=== PATIENT | male | born 1980 | race Hispanic/Latino ===

== ENCOUNTER 2019-02-19 11:10 | Inpatient (IN) | payer OTHER, SELFPAY ==
[2019-02-15 08:53] VITALS: BMI 39.1
[2019-02-19] VITALS (16 sets, daily range): BP systolic 87–131; BP diastolic 51–84; PULSE 58–96; RESP 8–20; TEMP 36–36.9; O2SAT 91–97; BMI 38.5
--- NOTE | 2019-02-19 | DI.RAD.S_ITS ---
PROCEDURE: XR LUMBAR SPINE 2-3V INDICATIONS: TLIF LUMBAR TECHNIQUE: 2 intraoperative fluoroscopic views of the lumbar spine were acquired. COMPARISON: [facility], , -SPINE 2-3 VIEWS, 12/13/2016, 14:41. FINDINGS: There is posterior fusion hardware and a disc spacer present at the L4-5 level. Normal alignment is maintained. IMPRESSION: Intraoperative fluoroscopy for lumbar fusion. Dictated by: Maria Eugenia Mejia M.D. on 02/19/2019 at 16:46 Approved by: Maria Eugenia Mejia M.D. on 02/19/2019 at 16:48
[2019-02-19] MEDS: LACTATED RINGERS 1,000 ML 42 ML IV ×2 (11:54→14:47)
--- NOTE | 2019-02-19 12:19 | PM.PREOP ---
Pre-operative Note Interval Note History & Physical reviewed/Exam performed by Physician: Yes Changes to H&P: No H&P completed within 30 days and has changed as indicated here:: Sanding Line Operator service present for exam and consent form
--- NOTE | 2019-02-19 12:38 | P.OP_ITS ---
Operative Date/Time/Diagnoses Date of procedure: 02/19/19 Time of procedure: 16:29 Pre-op diagnosis: Recurrent lumbar disc herniation with radiculopathy Post-op diagnosis: same Procedure & Clinicians Procedure: L5-6 revision laminotomy with diskectomy on the right Use of microscope L5-6 TLIF (post/post interbody fusion) with cage L5 and L6 screws Iliac crest bone graft aspirate Placement of an epidural catheter Same procedure as scheduled: Yes Indications: [age] year old male with intractable pain from recurrent disc herniation. They had failed conservative management and requested operative intervention. Risks and benefits of surgery were discussed and appropriate consents were obtained. Surgeon: Brien Villafuerte Ironworker Wire Fence Erector: Anna Monzon Anesthesia Type: General Operative Notes Findings: None Closure Type: primary Specimen(s): none sent Prosthetic devices, grafts, tissues, transplants, or devices: NuVasive MAS Reline screws Globus Rise cage Applied: catheter Estimated Blood Loss (mL): 150 Blood products transfused: none Procedure in detail: The patient was brought to the operating room and intubated on the table. A time-out was performed. They were then rolled over to the well- padded Hugo table in the prone position. Preoperative antibiotics were given. The back was prepped and draped in the standard sterile fashion. Using fluoroscopy, a 4 cm longitudinal incision was made to the well-marked right of the midline, excising his previous scar. We used Bovie to come down to and split the lumbodorsal fascia. Using fluoroscopy and monitoring, we then per cutaneously placed Jamshidi needles down the pedicles of L5 and L6 on the right side. He has transitional anatomy and this was the level of his previous laminotomy and diskectomy. These were changed out to guidewires and then we tapped and then placed the NuVasive MAS Reline screw shanks. We then opened up the retractors and used Bovie to clear up the posterolateral gutter as well as medially to the level of his previous laminotomy and cleared off some of the scar tissue. A bur was used to decorticate the transverse processes. We brought in the microscope. Using a combination of bur and Kerrison rongeurs, a revision laminotomy was performed from the right side. We had to carefully clear through the scar tissue until were able to free up the dura from the scar tissue as well as where it was adhered to the disc below. This was separate and distinct from the TLIF approach as we were performing a revision decompression level which required much more time and complexity to work around the scar tissue and free the dura. We then began the TLIF prep. A complete facetectomy was performed on this side at L5-6. We carefully cleaned up the remainder of the foramen until we could easily retract the exiting root as well as clearing medially below the dura and expose the disc space and freeing it up from the scar around the dura. The disc was prepped with bipolar and then an annulotomy was performed. We performed a diskectomy using a combination of paddles, michael, pituitaries, and curettes. We distracted the disc using a paddle and locked the retractor in an open position. We then filled the disc space with Osteocel bone graft. We then placed the globus Rise cage under fluoroscopy and then filled this in with more bone graft. The distraction on the retractor was released to compress down. This completed the posterior interbody fusion portion of the TLIF at L5-6. We then placed the screw heads, hillary, and locked down the set screws. The wound was copiously irrigated. A small stab incision was made over the PSIS. We used a Jamshidi needle to aspirate several mL of bone marrow from the pelvis. This was mixed with the remaining Osteocel and combined with all of the locally harvested bone graft and placed in the posterolateral gutter for the posterior fusion of the TLIF at L5- 6. An epidural catheter was then placed in the spinal canal by carefully depressing the dura and advancing it 6 cm cephalad under the remaining lamina without resistance. The muscle fascia was closed. The catheter was then injected with a solution containing 4 mL of 0.5% Marcaine, 1 mg Stadol, 4 mg Duramorph, and 100 mcg of fentanyl. This was injected without resistance and the catheter was pulled. We then went to the opposite side. Again using fluoroscopy, a 3 cm incision was made and Bovie was used to come down to split the fascia. Using neural monitoring and fluoroscopy, Jamshidi needles were advanced down the pedicles of L5 and L6 on the left side. These were switched over guidewires, tapped, and screws placed. We then placed a hillary and locked the set screws on this side. The wound was irrigated. The fascia was closed. Vancomycin powder was placed in the wounds. The superficial and skin were closed. A sterile dressing was placed. The patient was then rolled over extubated and brought to recovery room without complications. Complications: none Condition: stable Disposition: PACU Plan for aftercare: Inpatient. Up with therapy.
[2019-02-19] MEDS: CEFAZOLIN 2 GM/100 ML FROZ.PIGGY IV ×2 (13:27→21:35)
--- NOTE | 2019-02-19 14:03 | SUR.OPER ---
Prone on spine table, head in foam head support, padded chest and pelvic supports, gel pad at knees, lower legs supported by pillows; nipples, genitalia and toes free of pressure, arms secured on foam padded arm boards at <90 degrees abduction. Tape over blanket at thigh secured to table.
[2019-02-19] MEDS: SODIUM CHLORIDE 0.9% 1,000 ML, GENTAMICIN 80 MG IRR (14:07)
[2019-02-19] MEDS: VANCOMYCIN 1,000 MG VIAL 1000 MG TOP (14:07)
[2019-02-19] MEDS: THROMBIN (RECOMBINANT) 5,000 UNIT VIAL 5000 UNIT TOP (14:07)
[2019-02-19] MEDS: BUPIVACAINE 0.5% (PF) 4 ML, MORPHINE-PF 4 MG, BUTORPHANOL 1 MG, fentaNYL 100 MCG INJ (15:30)
[2019-02-19] MEDS: HYDROMORPHONE 2 MG INJ 0.5 MG IV ×4 (17:07→17:31)
[2019-02-19] MEDS: hydrOXYzine 50 MG/ML INJ 25 MG IM (17:11)
--- NOTE | 2019-02-19 17:57 | SUR.PHASEI ---
Report called to Gisela
--- NOTE | 2019-02-19 18:13 | SUR.PHASEI ---
Pt transferred to the floor with belongings bag and cane. Milk Inspector present. Report to Gisela. VS stable. Drsg checked with Gisela. IV saline locked. Pt moving extremities independently. Family present.
[2019-02-19] MEDS: LACTATED RINGERS 1,000 ML 125 ML IV (21:15)
[2019-02-19] MEDS: CELECOXIB 200 MG CAPSULE 400 MG PO (21:16)
[2019-02-19] MEDS: GABAPENTIN 300 MG CAPSULE PO (21:21)
[2019-02-19] MEDS: ATORVASTATIN 20 MG TABLET PO (21:21)
[2019-02-19] MEDS: DOCUSATE 100 MG CAPSULE PO (21:21)
[2019-02-19] MEDS: LISINOPRIL 10 MG TABLET PO (21:21)
[2019-02-19] MEDS: METFORMIN HCL 500 MG TABLET PO (21:23)
[2019-02-19] MEDS: SENNOSIDES 8.6 MG TABLET 17.2 MG PO (21:23)
[2019-02-19] MEDS: HYDROCODONE/ACET 5/325 TABLET 2 TAB PO (21:34)
--- NOTE | 2019-02-19 22:12 | PC.NURSE ---
Pt came to floor at 1800/ Pt in non-mozambican speaking, interupter present. Has had uneventful evening. Med at 2130 w/ Randall for discomfort. Lungs clear, SpO2 98% RA IVF infusing as per orders into the right hand via pump w/o incidence. Dsg to back CDI. Baxter cath patent clear urine. Stable post op course. Call light w/in reach/ bed alarm on for pt safety. Continue w/plan of care.
[2019-02-20] VITALS (8 sets, daily range): BP systolic 91–134; BP diastolic 49–84; PULSE 68–106; RESP 16–20; TEMP 36.5–36.8; O2SAT 96–99
--- NOTE | 2019-02-20 00:12 | PC.NURSE ---
2300- Pt POD#0 Lami & Tlift, dressing w/ shadow drainage and some old pink drainage as well on back, pt has not ambulated or worked w/ PT at this time. Analytical Lab Analyst present in room as pt is Armenian speaking only; cont SpO2 remains in place; NS running as ordered. BG checks DC'd. BA on for safety, call light within reach. 0500- Pt is hypotensive and dizzy lying in bed. Good urine output noted in kwong catheter; asking for pain medication however needing to consult MD first. 0530- MD Baird called this RN back regarding hypotension. Wanting to wait for PA to round and cont to assess BP until they arrive, will call MD back if BP gets worse.
[2019-02-20] MEDS: CEFAZOLIN 2 GM/100 ML FROZ.PIGGY IV (05:14)
[2019-02-20] MEDS: LACTATED RINGERS 1,000 ML 125 ML IV (05:14)
[2019-02-20 05:32] LABS: Hematocrit 39.1 % (41-53); Hemoglobin 12.8 g/dL (13.5-17.5)
[2019-02-20 05:41] LABS: BUN Creatinine Ratio 18.9 (6-22); Blood Urea Nitrogen 17 mg/dL (9-20); Calcium 9.1 mg/dL (8.4-10.2); Carbon Dioxide 26 mmol/L (22-32); Chloride 103 mmol/L (98-107); Estimated Glomerular Filt Rate > 60.0 mL/min (>60); Glucose 175 mg/dL (70-100); HEMOLYSIS < 15 (0-50); Potassium 4.5 mmol/L (3.4-5.1); Sodium 136 mmol/L (137-145)
--- NOTE | 2019-02-20 08:07 | PM.PNPO.1 ---
Subjective Date Patient Seen: 02/20/19 Time Patient Seen: 08:07 Interval history: Back pain is not too bad right now. Still feeling some pain in the legs, but with the pain medication that he is on, unable to tell how much difference there has been since surgery. Exam Vital Signs (past 8 hours): - 02/20/19 04:00 02/20/19 06:21 02/20/19 07:30 Temperature 98.0 F 97.7 F Pulse Rate 95 H 92 H 88 Respiratory Rate 18 18 Blood Pressure 91/49 L 109/71 104/65 Pulse Oximetry 97 97 Oxygen Delivery Method Room Air Const Orientation: alert and oriented x3 Back/Spine/Pelvis Other: Mild drainage. 5/5 motor both lower extremities. Objective Labs Result Diagrams: 02/20/19 05:16 02/20/19 05:16 Labs: Laboratory Results - last 24 hr 02/20/19 02/20/19 05:16 05:16 Hgb 12.8 L Hct 39.1 L Sodium 136 L Potassium 4.5 Chloride 103 Carbon Dioxide 26 BUN 17 Creatinine 0.90 Estimated GFR > 60.0 BUN/Creatinine Ratio 18.9 Glucose 175 H Calcium 9.1 Assessment & Plan Post-op Postoperative Procedures Operation Date: 02/19/19 12:45 Actual Procedures Side Surgeon p L5-6 Revision discectomy w/Instru fusion & bone graft Brien Villafuerte MD Stable after revision surgery. Mobilize today with physical therapy. Put on low-dose insulin protocol as his glucose was in the 160-170 range. Anticipate discharge in 2 more days probably. Quality VTE Deep Vein Thrombosis/Pulmonary Embolism Present on Admission: No
[2019-02-20] MEDS: HYDROCODONE/ACET 5/325 TABLET 2 TAB PO ×3 (08:46→22:53)
[2019-02-20] MEDS: DOCUSATE 100 MG CAPSULE PO ×2 (08:48→22:54)
[2019-02-20] MEDS: METFORMIN HCL 500 MG TABLET PO ×2 (08:48→22:55)
[2019-02-20] MEDS: CELECOXIB 200 MG CAPSULE PO ×2 (08:48→22:54)
--- NOTE | 2019-02-20 09:50 | PT.IIE ---
Current Diagnoses Other intervertebral disc displacement, lumbar region (02/19/19) Radiculopathy, lumbar region (02/19/19) Sprain of ligaments of lumbar spine, subsequent encounter (02/19/19) Surgery Performed Operation Date: 02/19/19 12:45 Actual Procedures p L5-6 Revision discectomy w/Instru fusion & bone graft - Brien Villafuerte MD Surgical History (Last Updated 02/15/19 @ 08:57 by Lily Marin RN) Hx of arthroscopy of right knee (Acute 10/15/15) Hx of microdiscectomy (Acute 12/13/16) Hx of right knee surgery (Acute 02/07/17) Medical History (Last Updated 02/15/19 @ 09:26 by Lily Marin RN) Constipation (Acute) Diabetes (Acute) HLD (hyperlipidemia) (Acute) HTN (hypertension) (Acute) Numbness and tingling of both legs (Acute) Physical Therapy Inpatient Evaluation/Re-Eval M1 PT/OT-IP Prior Functional Status Start: 02/20/19 12:03 Freq: NEEDED Status: Active Protocol: Document 02/20/19 09:50 AB (Rec: 02/20/19 12:32 AB [id number]) Medical Review Prior Functional Status Medical History Reviewed Yes Communication able to make needs known Mobility and Gait pt stated that he is modified independent with all mobilities and ambulation without AD Social History Household Members spouse Number of Floors (Floors) One Floor Number of Stairs To Enter/Railing? no steps to enter Home Environment Standard Height Toilet Walk in Shower Home Equipment Front Wheel Walker Four Wheel Walker Straight Cane Crutches Employment Status Unemployed Additional Social History Comment pt's spouse will be off work for 1 week to assist pt. pt's spouse works 11-12 hours/day 6x/week. M2 PT-IP Current Condition Start: 02/20/19 12:03 Freq: NEEDED Status: Active Protocol: Document 02/20/19 09:50 AB (Rec: 02/20/19 12:32 AB [id number]) Physical Therapy Current Condition Current Condition Evaluation Date 02/20/19 Treatment Diagnosis s/p L5-6 rev laminotomy/TLIF; difficulty in walking Onset Date 02/19/19 Precautions Lumbar Precautions Log Roll No Twisting Limit Bending Lifting Restriction of 10 lbs Gait Belt above Incisional Area M3 PT-IP Subjective Start: 02/20/19 12:03 Freq: NEEDED Status: Active Protocol: Document 02/20/19 09:50 AB (Rec: 02/20/19 12:32 AB [id number]) Subjective Physical Therapy Visit Type Type Initial Evaluation Visit Start Time 09:50 Visit Stop Time 10:31 Total Visit Minutes 41 Number of DESK SERGEANT Visits 0 Physical Therapy Visit Comments Patient Comments pt agreeable to do PT Therapy Pain Assessment Pain When Pain Assessed At Rest Pain Present Pain Present Pain Reported Location Lower Back Intensity 8 Scale Used Numeric (1 - 10) Pain Management Techniques Re-positioning Timing of Activity with Medications M4 PT-IP Mobility and Gait Start: 02/20/19 12:03 Freq: NEEDED Status: Active Protocol: Document 02/20/19 09:50 AB (Rec: 02/20/19 12:32 AB [id number]) PT-Bed Mobility Assessment Rolling Type of Rolling Log Rolling Level of Assist Minimal Assistance Supine to Sit Supine to Sit Maximum Assistance 1 Person Assistance PT-Transfer Assessment Sit to and From Stand Sit to and from Stand Moderate Assistance 1 Person Assistance Use of Upper Extremities Equipment Transfer Assistive Device Gait Belt Front Wheeled Walker Orthotic/Prosthetic Devices or Brace: No Transfers Transfer Destination Toilet Transfer Technique pt ambulated to the toilet using FWW Transfer Ability Level of Assist Minimal Assistance Gait Assessment Gait Gait Assistance Required: Minimum Assistance Distance (Feet) 15 Able to Maintain Weight Bearing Status Yes During Gait Assistive Devices Assistive Device Gait Belt Front Wheeled Walker Gait Deviations General Gait Pattern Antalgic Decreased Stride Length Decreased Feet Clearance Factors Limiting Gait Function Factors Limiting Gait Function Decreased Activity Tolerance Decreased Sensation Decreased Strength Limited Range of Motion Pain Poor Balance Poor Safety Awareness Comments Gait Comments pt ambulated to the toilet using FWW min A and cues. left pt with OT. PT-Balance Assessment Sitting Balance and Reactions Static Sitting Balance Ability Good Dynamic Sitting Balance Ability Good Standing Balance and Reactions Static Standing Balance Ability Fair Dynamic Standing Balance Ability Fair Device Used FWW M5 PT-IP Objective Assessments Start: 02/20/19 12:03 Freq: NEEDED Status: Active Protocol: Document 02/20/19 09:50 AB (Rec: 02/20/19 12:32 AB [id number]) Orientation Orientation/Cognition Level of Alertness Alert Orientation Name Place Situation Safety Awareness Understands Safety Issues Gross Range of Motion Lower Extremity ROM Assessment Within Functional Limits Strength Lower Extremity Strength Assessment Right Impaired Knee 3+/5 Sensation Assessment Sensation Gross Sensation Right LE Impaired Left LE Impaired Sensation Description Numbness Comments Sensation Comments R lateral thigh and B feet numbness Muscle Tone Muscle Tone WNL Yes M6 PT-IP Treatment Start: 02/20/19 12:03 Freq: NEEDED Status: Active Protocol: Document 02/20/19 09:50 AB (Rec: 02/20/19 12:32 AB [id number]) Physical Therapy Treatment Education Education Provided Precautions Weight Bearing Status Post-Op Packet Safety M7 PT-IP Assessment and Plan Start: 02/20/19 12:03 Freq: NEEDED Status: Active Protocol: Document 02/20/19 09:50 AB (Rec: 02/20/19 12:32 AB [id number]) PT Summary Assessment and Plan Potential Rehabilitation Potential Fair Status of Condition at Evaluation Stable Summary Impairments Pain ROM Strength Balance Coordination Sensation Bed Mobility Transfers Gait Activity Tolerance Assessment Summary pt requiring max A with bed mobility and mod A with mod A for sit to stand. pt plans to go home with spouse to assist him for only a week. d/c plan depending on progress. will conduct caregiver training when appropriate. Goals Bed Mobility Goal Standby Assistance Transfer Goal Standby Assistance Front Wheeled Walker Gait Goal Standby Assistance Front Wheel Walker Gait Distance 150 Days to Meet Goals 5 Frequency of Treatment Frequency Of Treatment Twice a Day Treatment Plan Physical Therapy Treatment Plan Bed Mobility Training Transfer Training Gait Training Therapeutic Exercise Balance Retraining Post Op Education Discharge Planning Hot or Cold Pack Neuromuscular Re-ed Coordination Retraining Manual Therapy Other Recommendations and Next Treatment bed mobility, ambulation, Focus caregiver training Recommendations To Nursing Amount of Assist Needed 1 Person Assist Discharge Recommendations PT Discharge Recommendations Home with Assistance
--- NOTE | 2019-02-20 10:45 | PC.NURSE ---
Pt up with therapy to BR at 1045. He was reporting discomfort around kwong, and requested to have it removed. Fluids stopped at that time also. Tegaderm with 4x4 gauze was completely saturated with blood, blood pooling at base of incision. Replaced with Tegaderm and and 4x4, CDI at this time.
[2019-02-20] MEDS: hydrOXYzine pamoate 25 MG CAPSULE PO ×2 (11:52→16:40)
[2019-02-20] MEDS: HYDROMORPHONE 0.5 MG INJ IV ×3 (11:52→22:58)
[2019-02-20] MEDS: INSULIN ASPART 100 UNIT/ML INSULN PEN SUBCUT ×2 (11:57→17:12)
--- NOTE | 2019-02-20 16:10 | CM.IDA ---
Initial DCP Assessment Note: Pt is a 38 yo male, resident of [facility]. POD#1 from spinal surgery w/Dr Villafuerte. PCP: Not listed Payer: L+I Reviewed chart. Pt mostly indp and active at baseline w/o use of AD. Pt limited by pain. Pt plans to DC back home upon DC w/ to assist for the one week she has off of work. Therapy notes indicate pt's spouse typically works 11-12 hours daily, 6 days per week. Therapy team will complete cg training when appropriate and work w/ pt/family to progress pt towards his goal of going home. Pt requiring Mod- Max assist today. Following closely for coordination of safe DCP. Pt has L+I coverage and will likely return home w/spouse uon DC. ENRRIQUE Miranda Discharge Planning/Care Management CM Discharge Assessment Start: 02/20/19 16:07 Freq: Status: Active Protocol: Document 02/20/19 16:08 WILLIAN (Rec: 02/20/19 16:10 WILLIAN [id number]) Discharge Planning Assessment Assigned Biologist Aide ENRRIQUE Rader DPOA/Assigned Designee Name Rizwana Aragon, spouse Contact Information [phone] Advance Directives? No: Declines further information History Provided By Patient Family Member Medical Record Prior Living Arrangements Apartment/Condo Household Members spouse Type of transporation used prior to Drives own vehicle admit Independent with ADL's Yes Is patient alert and oriented? Yes Comment Works at [employer] Discharge Plan Home Transportation Arrangement Family Review Status In Process
--- NOTE | 2019-02-20 16:42 | PT.IPTN ---
Current Diagnoses Other intervertebral disc displacement, lumbar region (02/19/19) Radiculopathy, lumbar region (02/19/19) Sprain of ligaments of lumbar spine, subsequent encounter (02/19/19) Surgery Performed Operation Date: 02/19/19 12:45 Actual Procedures p L5-6 Revision discectomy w/Instru fusion & bone graft - Brien Villafuerte MD Physical Therapy Treatment Note M2 PT-IP Current Condition Start: 02/20/19 12:03 Freq: NEEDED Status: Active Protocol: Document 02/20/19 09:50 AB (Rec: 02/20/19 12:32 AB [id number]) Physical Therapy Current Condition Current Condition Evaluation Date 02/20/19 Treatment Diagnosis s/p L5-6 rev laminotomy/TLIF; difficulty in walking Onset Date 02/19/19 Precautions Lumbar Precautions Log Roll No Twisting Limit Bending Lifting Restriction of 10 lbs Gait Belt above Incisional Area M3 PT-IP Subjective Start: 02/20/19 12:03 Freq: NEEDED Status: Active Protocol: Document 02/20/19 16:33 GGD (Rec: 02/20/19 16:42 GGD [email or web address]) Subjective Physical Therapy Visit Type Type Treatment Note Visit Start Time 14:00 Visit Stop Time 14:30 Total Visit Minutes 30 Number of HURL SHAKER Visits 1 Physical Therapy Visit Comments Patient Comments Pt willing to work PT. M4 PT-IP Mobility and Gait Start: 02/20/19 12:03 Freq: NEEDED Status: Active Protocol: Document 02/20/19 16:33 GGD (Rec: 02/20/19 16:42 GGD [id number]) PT-Bed Mobility Assessment Rolling Type of Rolling Log Rolling Level of Assist Contact Guard Assistance Supine to Sit Supine to Sit Minimal Assistance 1 Person Assistance Bedrails PT-Transfer Assessment Sit to and From Stand Sit to and from Stand Moderate Assistance 1 Person Assistance Use of Upper Extremities Equipment Transfer Assistive Device Gait Belt Front Wheeled Walker Orthotic/Prosthetic Devices or Brace: No Transfers Transfer Destination Chair Transfer Ability Level of Assist Minimal Assistance Gait Assessment Gait Gait Assistance Required: Contact Guard Assist Distance (Feet) 45 Able to Maintain Weight Bearing Status Yes During Gait Assistive Devices Assistive Device Gait Belt Front Wheeled Walker Gait Deviations General Gait Pattern Antalgic Decreased Stride Length Decreased Feet Clearance Factors Limiting Gait Function Factors Limiting Gait Function Decreased Activity Tolerance Decreased Sensation Decreased Strength Limited Range of Motion Pain Poor Balance Poor Safety Awareness Comments Gait Comments Shoes on for ambulation. Pt stood x 3 min for RN to change dressing. M5 PT-IP Objective Assessments Start: 02/20/19 12:03 Freq: NEEDED Status: Active Protocol: Document 02/20/19 09:50 AB (Rec: 02/20/19 12:32 AB [id number]) Orientation Orientation/Cognition Level of Alertness Alert Orientation Name Place Situation Safety Awareness Understands Safety Issues Gross Range of Motion Lower Extremity ROM Assessment Within Functional Limits Strength Lower Extremity Strength Assessment Right Impaired Knee 3+/5 Sensation Assessment Sensation Gross Sensation Right LE Impaired Left LE Impaired Sensation Description Numbness Comments Sensation Comments R lateral thigh and B feet numbness Muscle Tone Muscle Tone WNL Yes M6 PT-IP Treatment Start: 02/20/19 12:03 Freq: NEEDED Status: Active Protocol: Document 02/20/19 16:33 GGD (Rec: 02/20/19 16:42 GGD [email or web address]) Physical Therapy Treatment Education Education Provided Precautions M7 PT-IP Assessment and Plan Start: 02/20/19 12:03 Freq: NEEDED Status: Active Protocol: Document 02/20/19 16:33 GGD (Rec: 02/20/19 16:42 GGD [id number]) PT Summary Assessment and Plan Summary Assessment Summary Pt improving with mobility. He was able to progress gait distance. He did need assist for sit to stand from bed with cues for hand placement on bed. He fatigued quickly with static standing during dressing change. Frequency of Treatment Frequency Of Treatment Twice a Day Treatment Plan Other Recommendations and Next Treatment bed mobility, ambulation, Focus caregiver training Recommendations To Nursing Amount of Assist Needed 1 Person Assist Discharge Recommendations PT Discharge Recommendations Home with Assistance
--- NOTE | 2019-02-20 17:06 | PC.NURSE ---
1545- Pt C/O 7/10 pain to lower back, medicated with norco 2 tabs. 1620 up with PT ambulated in hallway. Changed lower back drsg which left gauze was saturated, changed to coversite with a 2x2 gauze to aspiration site, currently CDI. 1640- Pt reports pain remains at 7-8/10 medicated with Vistaril 25mg one tab. pt is up to chair for dinner. Fig Caprifier in room as well as family. RONNIE Golden who speaks fluent Hebrew, also is interpreting. VSS. Nigel TSANG.
[2019-02-20] MEDS: diphenhydrAMINE 25 MG TABLET PO (18:04)
--- NOTE | 2019-02-20 18:04 | OT.IP.EVAL ---
Current Diagnoses Other intervertebral disc displacement, lumbar region (02/19/19) Radiculopathy, lumbar region (02/19/19) Sprain of ligaments of lumbar spine, subsequent encounter (02/19/19) Surgery Performed Operation Date: 02/19/19 12:45 Actual Procedures p L5-6 Revision discectomy w/Instru fusion & bone graft - Brien Villafuerte MD Past Medical History (Last Updated 02/15/19 @ 09:26 by Lily Marin RN) Constipation (Acute) Diabetes (Acute) HLD (hyperlipidemia) (Acute) HTN (hypertension) (Acute) Numbness and tingling of both legs (Acute) Surgical History (Last Updated 02/15/19 @ 08:57 by Lily Marin RN) Hx of arthroscopy of right knee (Acute 10/15/15) Hx of microdiscectomy (Acute 12/13/16) Hx of right knee surgery (Acute 02/07/17) Occupational Therapy Inpatient Evaluation/Re-Eval M1 PT/OT-IP Prior Functional Status Start: 02/20/19 17:08 Freq: NEEDED Status: Active Protocol: Document 02/20/19 17:08 [facility] (Rec: 02/20/19 18:04 [facility] [id number]) Medical Review Prior Functional Status Medical History Reviewed Yes Communication able to make needs known Mobility and Gait pt stated that he is modified independent with all mobilities and ambulation without AD Activities of Daily Living and IADL's Pt able to do all ADl's and mainly uses slipper at home. Social History Household Members spouse Living Arrangements Apartment/Condo Number of Floors (Floors) One Floor Number of Stairs To Enter/Railing? no steps to enter Home Environment Standard Height Toilet Walk in Shower Home Equipment Front Wheel Walker Four Wheel Walker Straight Cane Crutches Employment Status Unemployed Additional Social History Comment pt's spouse will be off work for 1 week to assist pt. pt's spouse works 11-12 hours/day 6x/week. M2 OT-IP Current Condition Start: 02/20/19 17:08 Freq: Status: Active Protocol: Document 02/20/19 17:08 [facility] (Rec: 02/20/19 18:04 [facility] [id number]) Occupational Therapy Current Condition Current Condition Evaluation Date 02/20/19 Treatment Diagnosis Recurrent lumbar disc herniation, s/p L5-6 revision disectomy Diagnosis Onset Date 02/19/19 Post Operative Precautions Lumbar Precautions Log Roll No Twisting Limit Bending Lifting Restriction of 10 lbs Gait Belt above Incisional Area Weight Bearing Status Weight Bearing Status Weight Bear as Tolerated M3 OT- IP Subjective and Pain Start: 02/20/19 17:08 Freq: Status: Active Protocol: Document 02/20/19 17:08 [facility] (Rec: 02/20/19 18:04 [facility] [id number]) OT- Subjective Occupational Therapy Visit Type Type Initial Evaluation Visit Start Time 10:05 Visit Stop Time 11:48 Total Visit Minutes 103 Occupational Therapy Visit Comments Patient Comments Pt agreeable to get up. Pt Estonian speaking, however does speak and understand some saudi arabian. OT Pain Assessment Pain When Pain Assessed During Mobility Pain Present Pain Present Pain Reported Location Lower Back Intensity 8 Scale Used Numeric (1 - 10) M4 OT- IP ADL's Start: 02/20/19 17:08 Freq: Status: Active Protocol: Document 02/20/19 17:08 [facility] (Rec: 02/20/19 18:04 [facility] [id number]) OT ADL-Grooming General Evaluation Grooming Ability Standby Assistance Areas Needing Assistance Retrieving/Set-up of Grooming Items Comments OT Grooming Comments Pt able to stand with FWW to do all grooming needs. Cues to bend at hips or bring cup up to his mouth to spit. OT ADL-Oral Care General Eval Oral Care Ability Independent OT ADL-Dressing General Eval Lower Body Dressing Ability Maximum Assistance Areas Needing Assistance Socks Comments OT Dressing Comments Pt issued LB AED and able to practice to douglas/doff socks. Trial of slippers to walk and pt able to show good safety as slipper raisaong able to hold onto his feet well. Did suggest that shoes would be safer. OT ADL-Toileting General Evaluation Toileting Ability Minimal Assistance Areas Needing Assistance Perform Perineal Hygiene Devices Toileting Assistive Devices Grab Bars Comments OT Toileting Comments Pt having difficulty to lean to reach all the back and needing assist for completeness. Pt able to safely push up from the FWW with good safety. OT ADL-Bathing Comments OT Bathing Comments Pt not ready to shower today. M5 OT- IP IADL's Start: 02/20/19 17:08 Freq: Status: Active Protocol: Document 02/20/19 17:08 [facility] (Rec: 02/20/19 18:04 [facility] [id number]) OT-Instrumental Activities of Daily Living Home Safety Awareness Awareness of Need for Assistance at Home Good Awareness Ability to Problem Solve Emergency Able to Problem Solve Situations M6 OT- IP Functional Cognition Start: 02/20/19 17:08 Freq: Status: Active Protocol: Document 02/20/19 17:08 [facility] (Rec: 02/20/19 18:04 [facility] [id number]) Cognitive Factors Limiting Selfcare Function Cognitive Ability Level of Alertness Alert Patient Orientation Name Age Birthday Month Date Year Day of Week Place Situation Attention Span Ability Capable of Focused Attention Capable of Sustained Attention Ability to Follow Commands Able to Follow Multi-Step Commands Memory Description No Deficits Noted Safety Awareness No Deficits Noted Cognitive Comments Cognitive Assessment Comments 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 Pt appears to have no cognitive deficits. OT- Vision and Hearing OT- Hearing Assessment OT- Hearing Assessment WFL OT- Vision Assessment Visual Acuity WFL M7 OT- IP Mobility and Balance Start: 02/20/19 17:08 Freq: Status: Active Protocol: Document 02/20/19 17:08 [facility] (Rec: 02/20/19 18:04 [facility] [id number]) OT- Bed Mobility Assessment Rolling Type of Rolling Roll to Right Level of Assistance Minimal Assistance Supine to Sit Supine to Sit Assist Maximum Assistance 1 Person Assistance OT-Transfer Assessment Sit to and From Stand Sit to and from Stand Moderate Assistance Transfers Transfer Ability Minimal Assistance Technique Transfer Destination Bed Chair Toilet Transfer Technique Stand Step Pivot Devices Transfer Assistive Devices Gait Belt Front Wheeled Walker Comments Mobility Comments MAXA from sidelying to upright mainly due to pain. Pt needing assist to lower down to toilet. OT- Balance Assessment Sitting Balance and Reactions Static Sitting Balance Ability Normal Dynamic Sitting Balance Ability Good Standing Balance and Reactions Static Standing Balance Ability Fair M8 OT- IP Objective Assessments Start: 02/20/19 17:08 Freq: Status: Active Protocol: Document 02/20/19 17:08 [facility] (Rec: 02/20/19 18:04 [facility] [id number]) OT Gross Range of Motion Upper Extremity Range of Motion Assessment Within Functional Limits OT Strength Upper Extremity Strength Assessment Within Functional Limits M9 OT- IP Assessment and Plan Start: 02/20/19 17:08 Freq: Status: Active Protocol: Document 02/20/19 17:08 [facility] (Rec: 02/20/19 18:04 [facility] [id number]) OT Summary Assessment and Plan Potential Rehabilitation Potential Good Analytic Complexity at Evaluation Low Summary OT Impairments Strength Balance Functional Mobility Grooming Dressing Toileting Bathing Toilet Transfers Shower Transfers Progress Towards Goals Slow Progress due to Pain Assessment Summary Pt low complexity and main barrier is pain and bed mobility. Pt doing well and will continue to benefit from OT for LD AED, dressing needs, with incorporation of back precaution for needs and caregiver training. Goals Grooming Goal Independent Dressing Goal Independent Toileting Goal Independent Bathing Goal Standby Assistance Toilet Transfer Goal Independent Shower Transfer Goal Contact Guard Assistance Patient/Caregiver Education Goal Caregiver Independent Assisting Patient Days to Meet Goals 5 Frequency of Treatment Frequency Of Treatment Once a Day Treatment Plan OT Treatment Plan ADL Training Functional Mobility Patient/Family Education Discharge Planning Other Treatment Recommendations and Next shower Treatment Focus Discharge Recommendations OT Discharge Recommendations Home with Assistance Home Equipment Needs wide BSC, shower chair with arms, toilet aid
[2019-02-20] MEDS: ATORVASTATIN 20 MG TABLET PO (22:54)
[2019-02-20] MEDS: LISINOPRIL 10 MG TABLET PO (22:55)
[2019-02-20] MEDS: GABAPENTIN 300 MG CAPSULE PO (22:55)
[2019-02-20] MEDS: SENNOSIDES 8.6 MG TABLET 17.2 MG PO (22:55)
[2019-02-21] VITALS (8 sets, daily range): BP systolic 99–123; BP diastolic 56–82; PULSE 60–95; RESP 16–18; TEMP 36.3–36.8; O2SAT 98–100
[2019-02-21] MEDS: HYDROCODONE/ACET 5/325 TABLET 2 TAB PO ×5 (04:16→21:02)
--- NOTE | 2019-02-21 06:47 | PC.NURSE ---
Assumed care of pt at 2300 on 02/20/19. Pt sleeping during bedside hand-off. Awakens to voice for assessment. Drsg with moderate sang drainage to coversite that was changed on basilia shift. Medicated with Dyer po through the night. Pt reports pain well controlled. CMS+. Using I.S. while awake. Pt aware of spinal precautions of no bending, or twisting. Able to log roll in bed without assist for repositions. Calling appropriately for needs. Able to make needs known. Denied need for phone rock dust sprayer this shift as this check writer salesperson speaks some Czech. Bed alarm on.
--- NOTE | 2019-02-21 07:38 | PM.PNPO.1 ---
Subjective Date Patient Seen: 02/21/19 Time Patient Seen: 07:38 Interval history: He is doing better today. Still pain in the back but the legs are much better. Exam Vital Signs (past 8 hours): - 02/21/19 00:00 02/21/19 04:00 Temperature 97.9 F 97.3 F L Pulse Rate 80 63 Respiratory Rate 18 18 Blood Pressure 120/76 107/77 Pulse Oximetry 98 98 Oxygen Delivery Method Room Air Const Orientation: alert and oriented x3 Back/Spine/Pelvis Other: Mild drainage. 5/5 motor both lower extremities. Objective Labs Result Diagrams: 02/20/19 05:16 02/20/19 05:16 Assessment & Plan Post-op Postoperative Procedures Operation Date: 02/19/19 12:45 Actual Procedures Side Surgeon p L5-6 Revision discectomy w/Instru fusion & bone graft Brien Villafuerte MD he is doing better. Continue to mobilize with physical therapy. Anticipate discharge home tomorrow. Quality VTE Deep Vein Thrombosis/Pulmonary Embolism Present on Admission: No
[2019-02-21] MEDS: DOCUSATE 100 MG CAPSULE PO ×2 (08:40→20:51)
[2019-02-21] MEDS: METFORMIN HCL 500 MG TABLET PO ×2 (08:40→20:52)
[2019-02-21] MEDS: CELECOXIB 200 MG CAPSULE PO ×2 (08:40→20:51)
--- NOTE | 2019-02-21 10:22 | PC.NURSE ---
Addendum entered by Zulay Murillo R.N. 02/21/19 12:52: pt reports that the spanish interpreter is not coming until the afternoon. Pt states he understands Dr, PT, OT, nurse. Aware of phone foreign language interpreter if needed, no questions at this time. Original Note: Day Shift- Pt OOB to brush teeth at sink and to recliner chair at bedside with SBA, pt using FWW. Follows spine precautions during transfers with little prompting. Rates 6/10 pain aching and throbbing to lower back extending to BLE. Pain management plan discussed, prn Wagner given at 0840, pain decreased to 4/10. Lower back surgical dressing is saturated with bloody drainage, no leaking, open area to dressing at mid distal point. Dressing removed, no S/S of infection, incisions approximated with sutures, covered with what looks like xeroform gauze. Surrounding area cleansed with NS, pat dry with gauze. Coversite placed over incision. Pt toelrated well.
--- NOTE | 2019-02-21 10:45 | PT.IPTN ---
Current Diagnoses Other intervertebral disc displacement, lumbar region (02/19/19) Radiculopathy, lumbar region (02/19/19) Sprain of ligaments of lumbar spine, subsequent encounter (02/19/19) Surgery Performed Operation Date: 02/19/19 12:45 Actual Procedures p L5-6 Revision discectomy w/Instru fusion & bone graft - Brien Villafuerte MD Physical Therapy Treatment Note M2 PT-IP Current Condition Start: 02/20/19 12:03 Freq: NEEDED Status: Active Protocol: Document 02/20/19 09:50 AB (Rec: 02/20/19 12:32 AB [id number]) Physical Therapy Current Condition Current Condition Evaluation Date 02/20/19 Treatment Diagnosis s/p L5-6 rev laminotomy/TLIF; difficulty in walking Onset Date 02/19/19 Precautions Lumbar Precautions Log Roll No Twisting Limit Bending Lifting Restriction of 10 lbs Gait Belt above Incisional Area M3 PT-IP Subjective Start: 02/20/19 12:03 Freq: NEEDED Status: Active Protocol: Document 02/21/19 10:45 GGD (Rec: 02/21/19 12:05 GGD [id number]) Subjective Physical Therapy Visit Type Type Treatment Note Visit Start Time 10:20 Visit Stop Time 10:45 Total Visit Minutes [address] INTERPRETER Visits 2 Physical Therapy Visit Comments Patient Comments Pt states he is feeling better . Therapy Pain Assessment Pain When Pain Assessed During Mobility Pain Present Pain Present Pain Reported Location Lower Back Intensity 7 Scale Used Numeric (1 - 10) M4 PT-IP Mobility and Gait Start: 02/20/19 12:03 Freq: NEEDED Status: Active Protocol: Document 02/21/19 10:45 [facility] (Rec: 02/21/19 12:05 GGD [id number]) PT-Bed Mobility Assessment Rolling Type of Rolling Log Rolling Level of Assist Standby Assistance Supine to Sit Supine to Sit Standby Assistance Bedrails Sit to Supine Sit to Supine Standby Assistance Bedrails Scooting Scooting to Edge of Bed Standby Assistance PT-Transfer Assessment Sit to and From Stand Sit to and from Stand Contact Guard Assistance 1 Person Assistance Use of Upper Extremities Equipment Transfer Assistive Device Gait Belt Front Wheeled Walker Orthotic/Prosthetic Devices or Brace: No Transfers Transfer Destination Bed Toilet Transfer Ability Level of Assist Contact Guard Assistance Gait Assessment Gait Gait Assistance Required: Contact Guard Assist Distance (Feet) 175 Able to Maintain Weight Bearing Status Yes During Gait Assistive Devices Assistive Device Gait Belt Front Wheeled Walker Gait Deviations General Gait Pattern Antalgic Decreased Stride Length Decreased Feet Clearance Factors Limiting Gait Function Factors Limiting Gait Function Decreased Activity Tolerance Decreased Sensation Decreased Strength Limited Range of Motion Pain Poor Balance Poor Safety Awareness M5 PT-IP Objective Assessments Start: 02/20/19 12:03 Freq: NEEDED Status: Active Protocol: Document 02/20/19 09:50 AB (Rec: 02/20/19 12:32 AB [id number]) Orientation Orientation/Cognition Level of Alertness Alert Orientation Name Place Situation Safety Awareness Understands Safety Issues Gross Range of Motion Lower Extremity ROM Assessment Within Functional Limits Strength Lower Extremity Strength Assessment Right Impaired Knee 3+/5 Sensation Assessment Sensation Gross Sensation Right LE Impaired Left LE Impaired Sensation Description Numbness Comments Sensation Comments R lateral thigh and B feet numbness Muscle Tone Muscle Tone WNL Yes M6 PT-IP Treatment Start: 02/20/19 12:03 Freq: NEEDED Status: Active Protocol: Document 02/21/19 10:45 GGJose (Rec: 02/21/19 12:05 GGD [id number]) Physical Therapy Treatment Education Education Provided Precautions M7 PT-IP Assessment and Plan Start: 02/20/19 12:03 Freq: NEEDED Status: Active Protocol: Document 02/21/19 10:45 GGD (Rec: 02/21/19 12:05 GGD [id number]) PT Summary Assessment and Plan Summary Assessment Summary Pt improving with mobility. He was able to progress gait distance. He did have heavy use of UE on FWW. Pt was safe with transfers with use of hands on FWW. Frequency of Treatment Frequency Of Treatment Twice a Day Treatment Plan Physical Therapy Treatment Plan Bed Mobility Training Transfer Training Gait Training Therapeutic Exercise Balance Retraining Post Op Education Discharge Planning Hot or Cold Pack Neuromuscular Re-ed Coordination Retraining Manual Therapy Other Recommendations and Next Treatment bed mobility, ambulation, Focus caregiver training Recommendations To Nursing Amount of Assist Needed 1 Person Assist Discharge Recommendations PT Discharge Recommendations Home with Assistance
[2019-02-21] MEDS: INSULIN ASPART 100 UNIT/ML INSULN PEN SUBCUT (12:48)
[2019-02-21] MEDS: hydrOXYzine pamoate 25 MG CAPSULE PO ×2 (14:03→20:54)
--- NOTE | 2019-02-21 14:27 | OT.IP.TRT ---
Current Diagnoses Other intervertebral disc displacement, lumbar region (02/19/19) Radiculopathy, lumbar region (02/19/19) Sprain of ligaments of lumbar spine, subsequent encounter (02/19/19) Surgery Performed Operation Date: 02/19/19 12:45 Actual Procedures p L5-6 Revision discectomy w/Instru fusion & bone graft - Brien Villafuerte MD Occupational Therapy Treatment Note M2 OT-IP Current Condition Start: 02/20/19 17:08 Freq: Status: Active Protocol: Document 02/20/19 17:08 [facility] (Rec: 02/20/19 18:04 [facility] [id number]) Occupational Therapy Current Condition Current Condition Evaluation Date 02/20/19 Treatment Diagnosis Recurrent lumbar disc herniation, s/p L5-6 revision disectomy Diagnosis Onset Date 02/19/19 Post Operative Precautions Lumbar Precautions Log Roll No Twisting Limit Bending Lifting Restriction of 10 lbs Gait Belt above Incisional Area Weight Bearing Status Weight Bearing Status Weight Bear as Tolerated M3 OT- IP Subjective and Pain Start: 02/20/19 17:08 Freq: Status: Active Protocol: Document 02/21/19 14:14 CGR (Rec: 02/21/19 14:27 CGR [id number]) OT- Subjective Occupational Therapy Visit Type Type Treatment Note Visit Start Time 12:08 Visit Stop Time 12:48 Total Visit Minutes 40 Occupational Therapy Visit Comments Patient Comments It feels good to shower. I didn't get a shower after the last surgery. OT Pain Assessment Pain When Pain Assessed During Mobility Pain Present Pain Present Pain Reported Location Lower Back Intensity 6 Scale Used Numeric (1 - 10) Description Acute Management Techniques Timing of Activity with Medications M4 OT- IP ADL's Start: 02/20/19 17:08 Freq: Status: Active Protocol: Document 02/21/19 14:14 [facility] (Rec: 02/21/19 14:27 CGR [id number]) OT WIF-Hiho-Cnobxib General Evaluation Self-Feeding Ability Independent Comments OT Self-Feeding Comments Lunch arrived at end of session. OT ADL-Grooming General Evaluation Grooming Ability Independent Areas Needing Assistance Combing/Brushing Hair Face Washing OT ADL-Oral Care Comments Oral Care Comments Not performed in this session OT ADL-Dressing General Eval Upper Body Dressing Ability Independent Lower Body Dressing Ability Independent Areas Needing Assistance Underpants/Brief Socks Assistive Devices Dressing Assistive Devices Skein Yarn Dyer Helper Sock Aid Comments OT Dressing Comments Without verbal cues for LB dressing OT ADL-Toileting General Evaluation Toileting Ability Independent Comments OT Toileting Comments Seated on toilet OT ADL-Bathing General Evaluation Bathing Ability Independent Areas Needing Assistance Retrieving/Setting Up Items Devices Bathing Equipment Long Handled Sponge or Forming Acid Dumper Held Shower Sprayer Shower Chair with Arms Grab Bars M5 OT- IP IADL's Start: 02/20/19 17:08 Freq: Status: Active Protocol: Document 02/20/19 17:08 [facility] (Rec: 02/20/19 18:04 [facility] [id number]) OT-Instrumental Activities of Daily Living Home Safety Awareness Awareness of Need for Assistance at Home Good Awareness Ability to Problem Solve Emergency Able to Problem Solve Situations M6 OT- IP Functional Cognition Start: 02/20/19 17:08 Freq: Status: Active Protocol: Document 02/20/19 17:08 [facility] (Rec: 02/20/19 18:04 [facility] [id number]) Cognitive Factors Limiting Selfcare Function Cognitive Ability Level of Alertness Alert Patient Orientation Name Age Birthday Month Date Year Day of Week Place Situation Attention Span Ability Capable of Focused Attention Capable of Sustained Attention Ability to Follow Commands Able to Follow Multi-Step Commands Memory Description No Deficits Noted Safety Awareness No Deficits Noted Cognitive Comments Cognitive Assessment Comments 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 Pt appears to have no cognitive deficits. OT- Vision and Hearing OT- Hearing Assessment OT- Hearing Assessment WFL OT- Vision Assessment Visual Acuity WFL M7 OT- IP Mobility and Balance Start: 02/20/19 17:08 Freq: Status: Active Protocol: Document 02/21/19 14:14 [facility] (Rec: 02/21/19 14:27 C[facility] [id number]) OT- Bed Mobility Assessment Rolling Type of Rolling Log Rolling Level of Assistance Independent Supine to Sit Supine to Sit Assist Independent Sit to Supine Sit to Supine Assist Independent Scooting Scooting to Edge of Bed Independent OT-Transfer Assessment Sit to and From Stand Sit to and from Stand Standby Assistance Transfers Transfer Ability Standby Assistance Technique Transfer Destination Bed Shower Stall Toilet Devices Transfer Assistive Devices Bed Rail Front Wheeled Walker OT- Gait Assessment Gait Gait Assistance Required: Standby Assistance Assistive Devices Assistive Device Gait Belt Front Wheeled Walker Comments Gait Ability Comments Around room OT- Balance Assessment Sitting Balance and Reactions Static Sitting Balance Ability Normal Dynamic Sitting Balance Ability Normal Standing Balance and Reactions Static Standing Balance Ability Normal Dynamic Standing Balance Ability Normal M8 OT- IP Objective Assessments Start: 02/20/19 17:08 Freq: Status: Active Protocol: Document 02/20/19 17:08 [facility] (Rec: 02/20/19 18:04 [facility] [id number]) OT Gross Range of Motion Upper Extremity Range of Motion Assessment Within Functional Limits OT Strength Upper Extremity Strength Assessment Within Functional Limits M9 OT- IP Assessment and Plan Start: 02/20/19 17:08 Freq: Status: Active Protocol: Document 02/21/19 14:14 [facility] (Rec: 02/21/19 14:27 [facility] [id number]) OT Summary Assessment and Plan Potential Rehabilitation Potential Excellent Summary OT Impairments Strength Balance Functional Mobility Grooming Dressing Toileting Bathing Toilet Transfers Shower Transfers Progress Towards Goals Progressing Toward Goals Assessment Summary Pt presents with significant increases to mobility and is likley safe for discharge home . present throughout session and very supportive. Goals Grooming Goal Independent Dressing Goal Independent Toileting Goal Independent Bathing Goal Standby Assistance Toilet Transfer Goal Independent Shower Transfer Goal Contact Guard Assistance Patient/Caregiver Education Goal Caregiver Independent Assisting Patient Days to Meet Goals 4 Frequency of Treatment Frequency Of Treatment Once a Day Treatment Plan OT Treatment Plan ADL Training Functional Mobility Patient/Family Education Discharge Planning Discharge Recommendations OT Discharge Recommendations Home with Assistance Home Equipment Needs wide BSC, shower chair with arms, toilet aid, detachable shower head.
--- NOTE | 2019-02-21 16:10 | PT.IPTN ---
Current Diagnoses Other intervertebral disc displacement, lumbar region (02/19/19) Radiculopathy, lumbar region (02/19/19) Sprain of ligaments of lumbar spine, subsequent encounter (02/19/19) Surgery Performed Operation Date: 02/19/19 12:45 Actual Procedures p L5-6 Revision discectomy w/Instru fusion & bone graft - Brien Villafuerte MD Physical Therapy Treatment Note M2 PT-IP Current Condition Start: 02/20/19 12:03 Freq: NEEDED Status: Active Protocol: Document 02/20/19 09:50 AB (Rec: 02/20/19 12:32 AB [id number]) Physical Therapy Current Condition Current Condition Evaluation Date 02/20/19 Treatment Diagnosis s/p L5-6 rev laminotomy/TLIF; difficulty in walking Onset Date 02/19/19 Precautions Lumbar Precautions Log Roll No Twisting Limit Bending Lifting Restriction of 10 lbs Gait Belt above Incisional Area M3 PT-IP Subjective Start: 02/20/19 12:03 Freq: NEEDED Status: Active Protocol: Document 02/21/19 16:10 GGD (Rec: 02/21/19 17:12 GGD [id number]) Subjective Physical Therapy Visit Type Type Treatment Note Visit Start Time 15:35 Visit Stop Time 16:15 Total Visit Minutes 40 Number of ANATOMY AND PHYSIOLOGY INSTRUCTOR Visits 3 Physical Therapy Visit Comments Patient Comments Pt willing to work with [employer]. Therapy Pain Assessment Pain When Pain Assessed At Rest Pain Present Pain Present Pain Reported Location Lower Back Intensity 3 Scale Used Numeric (1 - 10) M4 PT-IP Mobility and Gait Start: 02/20/19 12:03 Freq: NEEDED Status: Active Protocol: Document 02/21/19 16:10 GGD (Rec: 02/21/19 17:12 GGD [id number]) PT-Transfer Assessment Sit to and From Stand Sit to and from Stand Standby Assistance 1 Person Assistance Use of Upper Extremities Equipment Transfer Assistive Device Gait Belt Front Wheeled Walker Orthotic/Prosthetic Devices or Brace: No Transfers Transfer Destination Chair Wheelchair Transfer Ability Level of Assist Contact Guard Assistance Gait Assessment Gait Gait Assistance Required: Contact Guard Assist Distance (Feet) 370 Able to Maintain Weight Bearing Status Yes During Gait Assistive Devices Assistive Device Gait Belt Front Wheeled Walker Gait Deviations General Gait Pattern Antalgic Decreased Stride Length Decreased Feet Clearance Factors Limiting Gait Function Factors Limiting Gait Function Decreased Activity Tolerance Decreased Sensation Decreased Strength Limited Range of Motion Pain Poor Balance Poor Safety Awareness Stair Climbing Assessment Evaluation Level of Assist On Stairs Contact Guard Assistance Devices Stair Climbing Assistive Devices Straight Cane Technique/Endurance Stair Climbing Direction Ascend and Descend Stair Climbing Technique Step to Step Number of Steps Climbed 3 Query Text: Stair Climbing Set # Repetitions (reps) 1 Comments Stair Climbing Comments Pt need min cues for stair mobility. M5 PT-IP Objective Assessments Start: 02/20/19 12:03 Freq: NEEDED Status: Active Protocol: Document 02/20/19 09:50 AB (Rec: 02/20/19 12:32 AB [id number]) Orientation Orientation/Cognition Level of Alertness Alert Orientation Name Place Situation Safety Awareness Understands Safety Issues Gross Range of Motion Lower Extremity ROM Assessment Within Functional Limits Strength Lower Extremity Strength Assessment Right Impaired Knee 3+/5 Sensation Assessment Sensation Gross Sensation Right LE Impaired Left LE Impaired Sensation Description Numbness Comments Sensation Comments R lateral thigh and B feet numbness Muscle Tone Muscle Tone WNL Yes M6 PT-IP Treatment Start: 02/20/19 12:03 Freq: NEEDED Status: Active Protocol: Document 02/21/19 16:10 GGD (Rec: 02/21/19 17:12 GGD [id number]) Physical Therapy Treatment Exercises Exercises Ankle Pumps Education Education Provided Precautions M7 PT-IP Assessment and Plan Start: 02/20/19 12:03 Freq: NEEDED Status: Active Protocol: Document 02/21/19 16:10 GGD (Rec: 02/21/19 17:12 GGD [id number]) PT Summary Assessment and Plan Summary Assessment Summary Pt improving with mobility. He able gait distance. He was safe and stable with stair mobility. He did need standing rest breaks during gait. Pt safe for home D/C when medically stable. Frequency of Treatment Frequency Of Treatment Twice a Day Treatment Plan Physical Therapy Treatment Plan Bed Mobility Training Transfer Training Gait Training Therapeutic Exercise Balance Retraining Post Op Education Discharge Planning Hot or Cold Pack Neuromuscular Re-ed Coordination Retraining Manual Therapy Other Recommendations and Next Treatment bed mobility, ambulation, Focus caregiver training Recommendations To Nursing Amount of Assist Needed 1 Person Assist Discharge Recommendations PT Discharge Recommendations Home with Assistance
[2019-02-21] MEDS: GABAPENTIN 300 MG CAPSULE PO (20:51)
[2019-02-21] MEDS: ATORVASTATIN 20 MG TABLET PO (20:51)
[2019-02-21] MEDS: LISINOPRIL 10 MG TABLET PO (20:52)
[2019-02-21] MEDS: SENNOSIDES 8.6 MG TABLET 17.2 MG PO (20:52)
--- NOTE | 2019-02-21 22:52 | PC.NURSE ---
1630- Pt back from PT hallway ambulation. Bottom coversite drsg saturated with serosang, removed and cleaned with gauze and NS, Xerofoam remains in place, coversite drsg, CDI. CMS+, pp+, 100%RA, LS clear. BT+ denies nausea. BRP to void and BM. CBG- 108 and 173, no coverage x2. Right hand SL. Probable DC tomorrow. Thai speaking, but also understands Sammarinese.
[2019-02-22] MEDS: HYDROCODONE/ACET 5/325 TABLET 2 TAB PO ×3 (01:29→11:44)
--- NOTE | 2019-02-22 03:28 | PC.NURSE ---
Assumed care of pt at 2300 on 02/21/19. Pt sleeping during hand-off report snoring loudly. O2 sats while asleep 94% RA. Awakens to voice and light touch. Sats increase to 97% while awake. Coversite Drsg to back with small amt of sero-sang drainage within margins of drsg. Medicating with norco per nov. Pt reports analgesic effective. CMS+, able to wiggle toes. BP slightly hypotensive. Pt denies dizziness or other symptoms; plan to keep vital sign checks q 4 hrs. Pt aware and following spinal precautions of no bending or twisting; able to log roll in bed with minimal assist. [place] speaking denied the need for administrative assistant office manager service as this quality analyst/technical writer speaks some [place] and pt is able to speak enough [place] Citizen to make needs known. rooming in for the night. Calling appropriately for needs.
[2019-02-22 04:19] VITALS: BP 98/63; PULSE 64; RESP 16; O2SAT 98
[2019-02-22 07:48] VITALS: BP 113/66; PULSE 70; RESP 20; TEMP 36.2; O2SAT 98
[2019-02-22] MEDS: CELECOXIB 200 MG CAPSULE PO (09:07)
[2019-02-22] MEDS: METFORMIN HCL 500 MG TABLET PO (09:07)
[2019-02-22] MEDS: DOCUSATE 100 MG CAPSULE PO (09:07)
--- NOTE | 2019-02-22 10:51 | PC.NURSE ---
Addendum entered by Tiffany Cabrera R.N. 02/22/19 13:11: DC - with acid pump operator present and interpreting, reviewed dc instrucvtions, scripts provided, was given norco x2 tabs 5/325 after earlier phys therapy, belongings gathered, including own fww, chargers and cell phones, tsf to wc w/belongings, to wc and escorted to car by auto phone installer. Addendum entered by Tiffany Cabrera R.N. 02/22/19 11:13: INTEG/MS/PAIN - removed coversite dsg, parallel incisions w/o redness or drainage, some surrounding bruising, sutures intact, replaced coversite. Up with phys therapy, ambul hallway and stair practice, louver door assembler has been at bedside this am. Original Note: AM NOTE - up to chair for breakfast, pain controlled with earlier norco tabs, 5 on scale 0/10, dsg back with shadow drainage, ra 98%, p66, anticipating dc home today.
--- NOTE | 2019-02-22 11:25 | PT.IPTN ---
Current Diagnoses Other intervertebral disc displacement, lumbar region (02/19/19) Radiculopathy, lumbar region (02/19/19) Sprain of ligaments of lumbar spine, subsequent encounter (02/19/19) Surgery Performed Operation Date: 02/19/19 12:45 Actual Procedures p L5-6 Revision discectomy w/Instru fusion & bone graft - Brien Villafuerte MD Physical Therapy Treatment Note M2 PT-IP Current Condition Start: 02/20/19 12:03 Freq: NEEDED Status: Active Protocol: Document 02/20/19 09:50 AB (Rec: 02/20/19 12:32 AB [id number]) Physical Therapy Current Condition Current Condition Evaluation Date 02/20/19 Treatment Diagnosis s/p L5-6 rev laminotomy/TLIF; difficulty in walking Onset Date 02/19/19 Precautions Lumbar Precautions Log Roll No Twisting Limit Bending Lifting Restriction of 10 lbs Gait Belt above Incisional Area M3 PT-IP Subjective Start: 02/20/19 12:03 Freq: NEEDED Status: Active Protocol: Document 02/22/19 11:25 GGD (Rec: 02/22/19 12:04 GGD [id number]) Subjective Physical Therapy Visit Type Type Treatment Note Visit Start Time 10:55 Visit Stop Time 11:25 Total Visit Minutes 30 Number of DIRECTOR TALENT ACQUISITION Visits 4 Physical Therapy Visit Comments Patient Comments Pt state he is ready to D/C home. Therapy Pain Assessment Pain When Pain Assessed At Rest Pain Present Pain Present Pain Reported Location Lower Back Intensity 5 Scale Used Numeric (1 - 10) M4 PT-IP Mobility and Gait Start: 02/20/19 12:03 Freq: NEEDED Status: Active Protocol: Document 02/22/19 11:25 GGD (Rec: 02/22/19 12:04 GGD [id number]) PT-Transfer Assessment Sit to and From Stand Sit to and from Stand Standby Assistance 1 Person Assistance Use of Upper Extremities Equipment Transfer Assistive Device Gait Belt Front Wheeled Walker Orthotic/Prosthetic Devices or Brace: No Transfers Transfer Destination Chair Toilet Transfer Ability Level of Assist Contact Guard Assistance Gait Assessment Gait Gait Assistance Required: Contact Guard Assist Distance (Feet) 300 Able to Maintain Weight Bearing Status Yes During Gait Assistive Devices Assistive Device Gait Belt Front Wheeled Walker Gait Deviations General Gait Pattern Antalgic Decreased Stride Length Decreased Feet Clearance Factors Limiting Gait Function Factors Limiting Gait Function Decreased Activity Tolerance Decreased Sensation Decreased Strength Limited Range of Motion Pain Poor Balance Poor Safety Awareness M5 PT-IP Objective Assessments Start: 02/20/19 12:03 Freq: NEEDED Status: Active Protocol: Document 02/20/19 09:50 AB (Rec: 02/20/19 12:32 AB [id number]) Orientation Orientation/Cognition Level of Alertness Alert Orientation Name Place Situation Safety Awareness Understands Safety Issues Gross Range of Motion Lower Extremity ROM Assessment Within Functional Limits Strength Lower Extremity Strength Assessment Right Impaired Knee 3+/5 Sensation Assessment Sensation Gross Sensation Right LE Impaired Left LE Impaired Sensation Description Numbness Comments Sensation Comments R lateral thigh and B feet numbness Muscle Tone Muscle Tone WNL Yes M6 PT-IP Treatment Start: 02/20/19 12:03 Freq: NEEDED Status: Active Protocol: Document 02/22/19 11:25 GGD (Rec: 02/22/19 12:04 GGD [id number]) Physical Therapy Treatment Education Education Provided Precautions M7 PT-IP Assessment and Plan Start: 02/20/19 12:03 Freq: NEEDED Status: Active Protocol: Document 02/22/19 11:25 GGD (Rec: 02/22/19 12:04 GGD [id number]) PT Summary Assessment and Plan Summary Assessment Summary Pt able to progress gait distance. He was safe with gait, but need standing rest breaks. Pt safe for D/C home when medically stable. Frequency of Treatment Frequency Of Treatment Twice a Day Treatment Plan Physical Therapy Treatment Plan Bed Mobility Training Transfer Training Gait Training Therapeutic Exercise Balance Retraining Post Op Education Discharge Planning Hot or Cold Pack Neuromuscular Re-ed Coordination Retraining Manual Therapy Recommendations To Nursing Amount of Assist Needed 1 Person Assist Discharge Recommendations PT Discharge Recommendations Home with Assistance
--- NOTE | 2019-02-22 11:39 | P.DS_ITS ---
History of Present Illness Date Patient Seen: 02/22/19 Time Patient Seen: 11:37 Chief complaint: [id number] Narrative: Please see HPI in chart Discharge Providers Date of admission: 02/19/19 11:10 Discharge Date: 02/22/19 Consults: 02/15/19 09:56 Consult to Accounts Receivable Collector Routine Comment: Armenian speaking, concerns for home care w/DC 02/19/19 19:55 Consult to Occupational Therapy Evaluate & Treat Comment: Physician Instructions: Evaluate and treat Consult to Physical Therapy Evaluate & Treat Comment: Physician Instructions: Evaluate and Treat 02/20/19 11:43 Consult to Occupational Therapy Evaluate & Treat Comment: S/P Spinal Surgery Physician Instructions: Wide Bedside Commode For Home Use Discharge provider: Melania Dawson PA-C Summary Hospital Course: [age] year old male with intractable pain from recurrent disc herniation. They had failed conservative management and requested operative intervention. Risks and benefits of surgery were discussed and appropriate consents were obtained. He was taken to the operating room for a revision lamino sebas with diskectomy on the right and L5-6 TLIF with no complications. His post operative period has been complicated by slow mobility and pain control. He has been steadily improving over the last two days and mobilized in the halls with PT today. He states his leg pain has continued to improve and incisional pain is controlled with [place]. He is requesting scripts for DME which were provided prior to discharge. He is tolerating food and voiding independently. His is available to assist him at home. He will be discharged with scripts for [place], Celebrex, and Vistaril and has appointment for outpatient follow up. Status at Discharge Cognitive/behavioral status at discharge: oriented Functional status at discharge: uses cane/walker Overall status at discharge: patient is progressing back to baseline Exam Vital Signs (past 8 hours): - 02/22/19 04:19 02/22/19 07:48 Temperature 97.1 F L Pulse Rate 64 70 Respiratory Rate 16 20 Blood Pressure 98/63 113/66 Pulse Oximetry 98 98 Oxygen Delivery Method Room Air Oxygen Flow Rate 0 Narrative Exam Narrative: 38 year old male resting comfortably in bed, in no acute distress. Alert and oriented. Hand Laminator present for exam. Dressing intact and in place with some shadow drainage. Neurovascularly intact in distal extremities with soft, compressible calves. Objective Labs Result Diagrams: 02/20/19 05:16 02/20/19 05:16 Discharge Plan Discharge Plan Patient Disposition: Home Discharge Med Rec/Prescriptions Prescriptions: New celecoxib [Celebrex] 200 mg Capsule 200 mg PO BID Qty: 60 RF: 0 hydrocodone-acetaminophen 5-325 mg Tablet 2 tab PO Q4-6H PRN (Reason: Pain, Severe (7-10)) Qty: 60 RF: 0 hydroxyzine pamoate 25 mg Capsule 25 mg PO Q4HR PRN (Reason: Nausea And Vomiting) Qty: 60 RF: 0 Adjustable shower head Qty: 1 RF: 0 Shower chair Qty: 1 RF: 0 Wide Bedside Commode for home use Qty: 1 RF: 0 Continued lisinopril 20 MG tablet 10 mg PO BEDTIME Qty: 0 RF: 0 metformin 500 mg Tablet 500 mg PO BID RF: 0 atorvastatin 20 mg Tablet 20 mg PO BEDTIME RF: 0 Discontinued naproxen [Naprosyn] 500 mg Tablet 2 tab PO Q OTHER DAY RF: 0 Follow up/Referrals: Brien Villafuerte MD [Physician] - Provider Discharge Instructions Diet: Diet as Tolerated Activity: No bending, lifting, or twisting. Cold/Heat Therapy: Ice packs as needed. Skin/Wound/Dressing Care Report to your healthcare provider any signs of infection, such as:: chills, fever, unusual drainage and unusual redness Dressing: Leave dressing in place. Will be removed at post operative visit. Visit Report/Discharge Packet Instructions: DI for Transforaminal Lumbar Interbody Fusion Discharge Data Attending Provider: Brien Villafuerte Admit Date/Time: 02/19/19 11:10 Quality VTE Deep Vein Thrombosis/Pulmonary Embolism Present on Admission: No
== END 2019-02-22 13:15 | disposition home or self-care (01) | DRG 304 ==
PROVIDERS: Admitting Provider Orthopaedic Surgery; Visit Provider Orthopaedic Surgery
PROC: 0SG00AJ Fusion of Lumbar Vertebral Joint with Interbody Fusion Device, Posterior Approach, Anterior Column, Open Approach (ICD-10-PCS; principal; 2019-02-19 12:45)
DX: M51.26 Other intervertebral disc displacement, lumbar region (principal); M54.16 Radiculopathy, lumbar region; S33.5XXD Sprain of ligaments of lumbar spine, subsequent encounter; E66.9 Obesity, unspecified; I10 Essential (primary) hypertension; E11.9 Type 2 diabetes mellitus without complications; X58.XXXA Exposure to other specified factors, initial encounter; Z68.38 Body mass index [BMI] 38.0-38.9, adult; M96.1 Postlaminectomy syndrome, not elsewhere classified; Z79.84 Long term (current) use of oral hypoglycemic drugs
CPT/HCPCS: 36415; 72100; 76000; 80048; 82962; 85014; 85018; 94762; 97116; 97161; 97165; 97530; 97535; C1776; J0330; J0595; J0690; J1100; J1170; J2274; J2405; J2704; J3010; J3410